=== PATIENT | female | born 1960 ===

== ENCOUNTER 2016-10-09 10:02 | Outpatient (CLI) | payer OTHER ==
[2016-10-09 11:01] LABS: eGFR (African) > 60; eGFR (Non-African) > 60
== END 2016-10-09 10:03 ==
LOC: LAB 10:02
PROVIDERS: ATTEND Physician Assistant
DX: R73.9 Hyperglycemia, unspecified (principal)
CPT/HCPCS: 36415; 80053; 80061; 84443